=== PATIENT | male | born 1955 | race African-American/Black ===

== ENCOUNTER 2016-11-23 13:39 | Emergency (ER) | payer MEDICAID, OTHER ==
[~2016-11-23] VITALS: Ht 180.3 cm; Wt 103.0 kg
[~2016-11-23 13:39] MED LIST: [UNRECOGNIZED DRUG - REMARK]
[2016-11-23 17:56] VITALS: BP 140/71
== END 2016-11-23 17:58 | disposition home or self-care (01) ==
LOC: ER 15:26
DX: R60.0 Localized edema (principal); I10 Essential (primary) hypertension; M19.90 Unspecified osteoarthritis, unspecified site; Z96.649 Presence of unspecified artificial hip joint
CPT/HCPCS: 93970; 99284; Z7610

== ENCOUNTER 2017-06-06 10:33 | Emergency (ER) | payer MEDICAID ==
[~2017-06-06] VITALS: Ht 180.3 cm; Wt 111.0 kg
[2017-06-06] MEDS ORDERED: KETOROLAC 60MG/2ML VIAL IM ONE (20:00)
[2017-06-06 20:03] LABS: HEMATOCRIT. 44.7 % (42.0-52.0); MEAN CORPUSCULAR HEMOGLOBIN 31.4 pg (28.0-32.0); MEAN CORPUSCULAR VOLUME 93.5 fL (80.0-94.0); MEAN PLATELET VOLUME 9.8 fl (7.4-10.4); PLATELET 129 x1000/uL (130-400); RED BLOOD CELL COUNT 4.78 mill/uL (4.7-6.1); RED CELL DISTRIBUTION WIDTH 13.8 % (11.6-14.6)
[2017-06-06 20:38] LABS: PLATELET ESTIMATE SLIGHTLY DECREASED
[2017-06-06 21:20] VITALS: BP 156/73
== END 2017-06-06 21:20 | disposition home or self-care (01) ==
LOC: ER 14:13
DX: M25.552 Pain in left hip (principal); M54.5 Low back pain; I10 Essential (primary) hypertension; Z98.890 Other specified postprocedural states
CPT/HCPCS: 36415; 85025; 85651; 96372; 99284; J1885